=== PATIENT | female | born 1940 | race Caucasian/White ===

== ENCOUNTER 2019-04-21 08:47 | Emergency (ER) | payer MEDICARE, OTHER ==
[~2019-04-21] VITALS: Ht 152.4 cm; Wt 70.4 kg
[~2019-04-21 08:47] MED LIST: ASPI-535 PO; CELE200C PO; RSV10T PO; TRAM50TA2 PO; VALS80TA2 PO; [UNRECOGNIZED DRUG - REMARK]
[2019-04-21 09:15] VITALS: Ht 152.4 cm; Wt 70.4 kg
[2019-04-21] MEDS ORDERED: LORAZEPAM 2 MG INJ IV ONE (09:30)
[2019-04-21 11:00] VITALS: BP 125/65; PULSE 92; RESP 18
== END 2019-04-21 11:00 | disposition home or self-care (01) ==
LOC: E/R 08:47
DX: F41.9 Anxiety disorder, unspecified (principal); I10 Essential (primary) hypertension; G44.209 Tension-type headache, unspecified, not intractable; R20.0 Anesthesia of skin; R40.2142 Coma scale, eyes open, spontaneous, at arrival to emergency department; R40.2362 Coma scale, best motor response, obeys commands, at arrival to emergency department; R40.2252 Coma scale, best verbal response, oriented, at arrival to emergency department; Z79.82 Long term (current) use of aspirin
CPT/HCPCS: 70450; 71045; 80053; 83690; 84484; 85025; 93005; 96374; 99285; J2060